=== PATIENT | female | born 1955 | race Caucasian/White ===

== ENCOUNTER 2022-11-03 16:13 | Emergency (ER) | payer MEDICARE ==
[~2022-11-03] VITALS: Ht 154.9 cm; Wt 69.0 kg
[2022-11-03 16:34] VITALS: TEMP 98.4
[2022-11-03] MEDS ORDERED: LISI10TA22 PO (17:02)
[2022-11-03] MEDS ORDERED: FLON1SPR NARES (17:02)
[2022-11-03] MEDS ORDERED: FURO20TA2 PO (17:02)
[2022-11-03] MEDS ORDERED: ATOR40TA75 PO (17:02)
[2022-11-03] MEDS ORDERED: CYMB60CA4 PO (17:02)
[2022-11-03] MEDS ORDERED: TRAZ-186 PO (17:02)
[2022-11-03 17:57] LABS: BASO # 0.1 10^3/uL (0.0-0.2); BASO % 0.8 % (0.0-1.0); EOS # 0.1 10^3/uL (0.0-0.5); EOS % 1.3 % (0.0-3.0); HEMATOCRIT 36.5 % (36.0-47.0); HEMOGLOBIN 12.2 g/dl (12.0-15.5); LYMPH # 2.4 10^3/uL (1.5-5.0); LYMPH % 29.9 % (24.0-44.0); MEAN CORPUSCULAR HEMOGLOBIN 31.3 pg (27.0-33.0); MEAN CORPUSCULAR HGB CONC 33.4 g/dl (32.0-36.5); MEAN CORPUSCULAR VOLUME 93.6 fl (80.0-96.0); MONO # 0.7 10^3/uL (0.0-0.8); NEUTROPHILS # 4.7 10^3/uL (1.5-8.5); NEUTROPHILS % 58.7 % (36.0-66.0); PLATELET COUNT, AUTOMATED 266 10^3/uL (150-450)
[2022-11-03 18:03] LABS: BLOOD UREA NITROGEN 22 MG/DL (9-23); CARBON DIOXIDE LEVEL 24 MMOL/L (20-31); CHLORIDE LEVEL 106 MMOL/L (98-107); CREATININE FOR GFR 0.98 MG/DL (0.55-1.30); GLOMERULAR FILTRATION RATE > 60.0 (>45); GLUCOSE, FASTING 96 MG/DL (74-106); POTASSIUM SERUM 3.7 MMOL/L (3.5-5.1); SODIUM LEVEL 138 MMOL/L (136-145)
[2022-11-03 18:06] LABS: THYROID STIMULATING HORMONE 4.698 uIU/ML (0.55-4.78)
[2022-11-03 18:30] VITALS: BP 117/66; O2SAT 96
[2022-11-03] MEDS ORDERED: ISOVUE-370 76% 100ML VIAL As Ordered ONE (18:47)
[2022-11-03 18:53] LABS: CK-MB VALUE MASS < 1.0 NG/ML (<3.6)
[2022-11-03 18:57] LABS: CPK CREATINE PHOSPHOKINASE 28 U/L (34-145); MB/CK RELATIVE INDEX 3.57 (< OR =4)
[2022-11-03 19:31] LABS: CK-MB VALUE MASS < 1.0 NG/ML (<3.6)
[2022-11-03 20:00] LABS: CPK CREATINE PHOSPHOKINASE 37 U/L (34-145)
== END 2022-11-03 19:38 | disposition left against medical advice (07) ==
LOC: EDBD 16:13 → M ED 16:13
DX: R55 Syncope and collapse (principal); I25.2 Old myocardial infarction; K21.9 Gastro-esophageal reflux disease without esophagitis; I10 Essential (primary) hypertension; M79.7 Fibromyalgia; F03.90 Unspecified dementia, unspecified severity, without behavioral disturbance, psychotic disturbance, mood disturbance, and anxiety; Z87.891 Personal history of nicotine dependence; Z88.5 Allergy status to narcotic agent; Z88.6 Allergy status to analgesic agent; Z88.8 Allergy status to other drugs, medicaments and biological substances; Z79.899 Other long term (current) drug therapy; Z98.84 Bariatric surgery status

== ENCOUNTER 2022-11-22 14:37 | Emergency (ER) | payer MEDICARE, MEDICAID ==
[~2022-11-22] VITALS: Ht 154.9 cm; Wt 75.5 kg
[~2022-11-22 14:37] MED LIST: ATOR40TA75 PO; CYMB60CA4 PO; FLON1SPR NARES; FURO20TA2 PO; LISI10TA22 PO; TRAZ-186 PO
[2022-11-22 15:02] LABS: BASO # 0.1 10^3/uL (0.0-0.2); BASO % 0.8 % (0.0-1.0); EOS # 0.2 10^3/uL (0.0-0.5); HEMATOCRIT 36.8 % (36.0-47.0); HEMOGLOBIN 12.2 g/dl (12.0-15.5); LYMPH # 3.1 10^3/uL (1.5-5.0); LYMPH % 33.8 % (24.0-44.0); MEAN CORPUSCULAR HEMOGLOBIN 31.5 pg (27.0-33.0); MEAN CORPUSCULAR HGB CONC 33.2 g/dl (32.0-36.5); MEAN CORPUSCULAR VOLUME 95.1 fl (80.0-96.0); MONO # 0.7 10^3/uL (0.0-0.8); MONO % 7.5 % (2.0-8.0); NEUTROPHILS # 5.1 10^3/uL (1.5-8.5); NEUTROPHILS % 55.7 % (36.0-66.0); PLATELET COUNT, AUTOMATED 303 10^3/uL (150-450); RED BLOOD COUNT 3.87 10^6/uL (4.00-5.40); WHITE BLOOD COUNT 9.1 10^3/uL (4.0-10.0)
[2022-11-22] MEDS ORDERED: ACETAMINOPHEN 325 MG TAB PO ONE (15:50)
[2022-11-22] MEDS ORDERED: MECLIZINE 25 MG TABLET PO ONE (15:50)
[2022-11-22 16:01] VITALS: BP 164/87; TEMP 98
[2022-11-22 16:07] VITALS: O2SAT 94
[2022-11-22 16:33] LABS: CK-MB VALUE MASS < 1.0 NG/ML (<3.6)
[2022-11-22 16:42] LABS: BLOOD UREA NITROGEN 27 MG/DL (9-23); CALCIUM LEVEL 8.4 MG/DL (8.3-10.6); CARBON DIOXIDE LEVEL 31 MMOL/L (20-31); CHLORIDE LEVEL 105 MMOL/L (98-107); CPK CREATINE PHOSPHOKINASE 32 U/L (34-145); GLOMERULAR FILTRATION RATE 53.1 (>45); GLUCOSE, FASTING 95 MG/DL (74-106); MB/CK RELATIVE INDEX 3.12 (< OR =4); POTASSIUM SERUM 3.9 MMOL/L (3.5-5.1); SODIUM LEVEL 141 MMOL/L (136-145)
[2022-11-22 17:48] LABS: CK-MB VALUE MASS < 1.0 NG/ML (<3.6)
[2022-11-22 17:52] LABS: CPK CREATINE PHOSPHOKINASE 30 U/L (34-145); MB/CK RELATIVE INDEX 3.33 (< OR =4)
[2022-11-22] MEDS ORDERED: MECL1TAB31 PO (20:12)
== END 2022-11-22 20:26 | disposition home or self-care (01) ==
LOC: M ED 14:37 → EDBD 14:37 → M ED 20:26
DX: R07.9 Chest pain, unspecified (principal); H81.399 Other peripheral vertigo, unspecified ear; E78.5 Hyperlipidemia, unspecified; K21.9 Gastro-esophageal reflux disease without esophagitis; R56.9 Unspecified convulsions; F03.90 Unspecified dementia, unspecified severity, without behavioral disturbance, psychotic disturbance, mood disturbance, and anxiety; Z98.84 Bariatric surgery status; Z88.5 Allergy status to narcotic agent; Z88.0 Allergy status to penicillin; Z88.6 Allergy status to analgesic agent; Z79.899 Other long term (current) drug therapy

== ENCOUNTER → 2023-01-18 | Outpatient (REF) | payer MEDICARE, MEDICAID ==
[~2023-01-18] MED LIST changes: +MECL-209 PO
[2023-01-18 17:51] LABS: ALBUMIN 4.1 G/DL (3.2-5.2); ALKALINE PHOSPHATASE 102 U/L (46-116); ALT/SGPT 19 U/L (7.0-40); AST/SGOT 10 U/L (<34); BILIRUBIN,TOTAL 0.6 MG/DL (0.3-1.2); BLOOD UREA NITROGEN 20 MG/DL (9-23); CALCIUM LEVEL 9.4 MG/DL (8.3-10.6); CARBON DIOXIDE LEVEL 28 MMOL/L (20-31); CHLORIDE LEVEL 101 MMOL/L (98-107); CHOLESTEROL LEVEL 133 MG/DL (<200); CHOLESTEROL RISK RATIO 2.94 (<5); CREATININE FOR GFR 1.19 MG/DL (0.55-1.30); GLOMERULAR FILTRATION RATE 48.5 (>45); GLUCOSE, FASTING 107 MG/DL (74-106); HDL CHOLESTEROL 45.1 MG/DL (>40); LDL CHOLESTEROL 64.7 MG/DL (<100); NON-HDL-C 87.9 MG/DL; POTASSIUM SERUM 4.7 MMOL/L (3.5-5.1); SODIUM LEVEL 138 MMOL/L (136-145); TOTAL PROTEIN 7.4 G/DL (5.7-8.2); TRIGLYCERIDES LEVEL 116 MG/DL (<150)
[2023-01-18 17:53] LABS: THYROID STIMULATING HORMONE 6.491 uIU/ML (0.55-4.78); TOTAL 25(OH) VITAMIN D 32.4 NG/ML (20.0-100.0)
[2023-01-18 17:55] LABS: HEMOGLOBIN A1c 5.2 % (4.0-6.0)
== END ==
LOC: M LAB REF 16:12
PROVIDERS: ATTEND Nurse Practitioner Family
DX: E66.3 Overweight (principal); E55.9 Vitamin D deficiency, unspecified; Z11.9 Encounter for screening for infectious and parasitic diseases, unspecified; Z79.51 Long term (current) use of inhaled steroids; Z79.899 Other long term (current) drug therapy

== ENCOUNTER → 2023-03-24 | Outpatient (REF) | payer MEDICARE, MEDICAID, OTHER | LOC: M LAB REF 16:39 | PROVIDERS: ATTEND Nurse Practitioner Family | DX: E03.9 Hypothyroidism, unspecified (principal) ==

== ENCOUNTER 2023-06-09 11:17 | Observation (INO) | payer OTHER, MEDICAID ==
[~2023-06-09] VITALS: Ht 154.9 cm; Wt 59.8 kg
[2023-06-09 12:21] LABS: BASO # 0.1 10^3/uL (0.0-0.2); BASO % 0.7 % (0.0-1.0); EOS % 0.2 % (0.0-3.0); HEMATOCRIT 44.6 % (36.0-47.0); HEMOGLOBIN 14.9 g/dl (12.0-15.5); LYMPH # 3.1 10^3/uL (1.5-5.0); LYMPH % 30.7 % (24.0-44.0); MEAN CORPUSCULAR HEMOGLOBIN 32.7 pg (27.0-33.0); MEAN CORPUSCULAR HGB CONC 33.4 g/dl (32.0-36.5); MEAN CORPUSCULAR VOLUME 97.8 fl (80.0-96.0); MONO # 0.7 10^3/uL (0.0-0.8); MONO % 7.3 % (2.0-8.0); NEUTROPHILS # 6.2 10^3/uL (1.5-8.5); NEUTROPHILS % 60.9 % (36.0-66.0); PLATELET COUNT, AUTOMATED 342 10^3/uL (150-450); RED BLOOD COUNT 4.56 10^6/uL (4.00-5.40); WHITE BLOOD COUNT 10.2 10^3/uL (4.0-10.0)
[2023-06-09 12:55] LABS: CK-MB VALUE MASS < 1.0 NG/ML (<3.6)
[2023-06-09 12:57] LABS: BLOOD UREA NITROGEN 15 MG/DL (9-23); CALCIUM LEVEL 8.7 MG/DL (8.3-10.6); CARBON DIOXIDE LEVEL 27 MMOL/L (20-31); CHLORIDE LEVEL 101 MMOL/L (98-107); CREATININE FOR GFR 1.02 MG/DL (0.55-1.30); GLOMERULAR FILTRATION RATE 57.7 (>45); GLUCOSE, FASTING 135 MG/DL (74-106); POTASSIUM SERUM 3.6 MMOL/L (3.5-5.1); SODIUM LEVEL 135 MMOL/L (136-145)
[2023-06-09 12:59] LABS: CPK CREATINE PHOSPHOKINASE 37 U/L (34-145)
[2023-06-09] MEDS ORDERED: MED REC IN PROGRESS XX SCH (13:25)
[2023-06-09 13:43] LABS: CK-MB VALUE MASS < 1.0 NG/ML (<3.6)
[2023-06-09 13:48] LABS: CPK CREATINE PHOSPHOKINASE 23 U/L (34-145); MB/CK RELATIVE INDEX 4.34 (< OR =4)
[2023-06-09 13:52] LABS: RSV AMPLIFICATION NEGATIVE (NEGATIVE)
[2023-06-09] MEDS ORDERED: NITROGLYCERIN 0.4MG SUBL TABLET SL PRN (14:20)
[2023-06-09] MEDS ORDERED: MAALOX 30 ML SUSP *UDC PO PRN (14:20)
[2023-06-09] MEDS ORDERED: CARA1TAB6 PO (14:52)
[2023-06-09] MEDS ORDERED: PANT40TA29 PO (14:52)
[2023-06-09 16:45] VITALS: BP 130/82; TEMP 97; O2SAT 98
[2023-06-09] MEDS: SUCRALFATE SUSP 1GM/10ML UD PO SCH (17:20)
[2023-06-09 18:59] LABS: CK-MB VALUE MASS < 1.0 NG/ML (<3.6)
[2023-06-09 19:01] LABS: CPK CREATINE PHOSPHOKINASE 29 U/L (34-145); MB/CK RELATIVE INDEX 3.44 (< OR =4)
[2023-06-09] MEDS: traZODone 50 MG TAB PO PRN (20:06)
[2023-06-09 21:26] VITALS: BP 97/60; TEMP 97.5; O2SAT 94
[2023-06-10 01:01] LABS: CK-MB VALUE MASS < 1.0 NG/ML (<3.6)
[2023-06-10 01:02] LABS: CPK CREATINE PHOSPHOKINASE 33 U/L (34-145); MB/CK RELATIVE INDEX 3.03 (< OR =4)
[2023-06-10 06:00] VITALS: BP 100/62; TEMP 97.9; O2SAT 98
[2023-06-10 07:06] LABS: CK-MB VALUE MASS < 1.0 NG/ML (<3.6)
[2023-06-10 07:08] LABS: CPK CREATINE PHOSPHOKINASE 32 U/L (34-145); MB/CK RELATIVE INDEX 3.12 (< OR =4)
[2023-06-10] MEDS ORDERED: E-Z-PAQUE 96% w/w SUSP 176GM BTL As Ordered ONE (08:19)
[2023-06-10] MEDS ORDERED: E-Z-HD 98% w/w 340GM SUSP BTL As Ordered ONE (08:20)
[2023-06-10] MEDS: HEPARIN SOD (PORCINE) 5000UNITS/ML 1ML VIAL/SYRINGE SQ SCH (12:12)
[2023-06-10] MEDS: PANTOPRAZOLE 40MG TAB (PROTONIX) PO SCH (12:12)
[2023-06-10 13:31] VITALS: BP 129/86; TEMP 97.5; O2SAT 98
[2023-06-11 05:16] VITALS: BP 102/69; TEMP 97.2; O2SAT 98
[2023-06-12 05:00] VITALS: BP 110/67; TEMP 97.5; O2SAT 97
[2023-06-12] MEDS ORDERED: FIORICET TAB PO PRN (12:05)
[2023-06-12] MEDS: FIORICET TAB PO ONE (12:18)
[2023-06-12] MEDS: DULoxetine 30MG CAPSULE (CYMBALTA) PO SCH (17:05)
[2023-06-12] MEDS: ATORVASTATIN 20 MG TAB PO SCH (17:05)
[2023-06-12] MEDS: ACETAMINOPHEN 500 MG TAB PO PRN (17:06)
[2023-06-12 17:10] VITALS: BP 100/66
[2023-06-12] MEDS: CETIRIZINE (ZyrTEC) 10 MG TAB PO SCH (20:58)
[2023-06-13 06:00] VITALS: TEMP 96.8; O2SAT 98
[2023-06-13] MEDS: LEVOTHYROXINE 50MCG TABLET (0.05MG) PO SCH (06:02)
[2023-06-13 06:17] VITALS: BP 116/65
[2023-06-13] MEDS ORDERED: MED REC IN PROGRESS XX SCH (08:45)
[2023-06-13] MEDS: FUROSEMIDE 20 MG TAB PO SCH (08:49)
[2023-06-13] MEDS ORDERED: ATOR1TAB21 PO (12:11)
[2023-06-13] MEDS ORDERED: LEVO50TA5 PO (12:11)
[2023-06-13] MEDS ORDERED: FURO20TA2 PO (12:11)
[2023-06-13] MEDS ORDERED: CETI10TA PO (12:11)
[2023-06-13] MEDS ORDERED: CYMB1CAP5 PO (12:11)
[2023-06-13] MEDS ORDERED: LISI10TA22 PO (12:11)
== END 2023-06-13 13:00 | disposition home or self-care (01) ==
LOC: M ED 11:17 → EDBD 11:17 → M ED INP 14:10 → EEVIPCON 14:10 → ENRESERV 16:05 → M MSPAV 16:54
PROVIDERS: ADMIT General Practice; ATTEND General Practice
DX: T76.91XA Unspecified adult maltreatment, suspected, initial encounter (principal); R07.89 Other chest pain; I10 Essential (primary) hypertension; E78.00 Pure hypercholesterolemia, unspecified; K21.9 Gastro-esophageal reflux disease without esophagitis; F03.90 Unspecified dementia, unspecified severity, without behavioral disturbance, psychotic disturbance, mood disturbance, and anxiety; G40.909 Epilepsy, unspecified, not intractable, without status epilepticus; F41.9 Anxiety disorder, unspecified; F32.A Depression, unspecified; E66.9 Obesity, unspecified; Z98.84 Bariatric surgery status; Z79.899 Other long term (current) drug therapy; Z88.0 Allergy status to penicillin; Z88.5 Allergy status to narcotic agent; Z88.8 Allergy status to other drugs, medicaments and biological substances
CPT/HCPCS: 36415; 70450; 71045; 74246; 80048; 81001; 82550; 82553; 84484; 85025; 87086; 87631; 93005; 93041; 93306; 94760; 96372; 97161; 97165; 99285; G0378

== ENCOUNTER 2023-11-22 13:03 | Emergency (ER) | payer OTHER, MEDICAID ==
[~2023-11-22] VITALS: Ht 154.9 cm; Wt 67.3 kg
[~2023-11-22 13:03] MED LIST changes: +ATOR1TAB21 PO; +CARA1TAB6 PO; +CETI10TA PO; +CYMB1CAP5 PO; +LEVO50TA5 PO; +PANT40TA29 PO
[2023-11-22 13:27] VITALS: BP 140/83; TEMP 97.8; O2SAT 96
== END 2023-11-22 16:13 | disposition home or self-care (01) ==
LOC: EDBD 13:03 → M ED 13:03
DX: R22.42 Localized swelling, mass and lump, left lower limb (principal); I10 Essential (primary) hypertension; E78.5 Hyperlipidemia, unspecified; Z88.1 Allergy status to other antibiotic agents; Z88.5 Allergy status to narcotic agent; Z88.8 Allergy status to other drugs, medicaments and biological substances; Z79.899 Other long term (current) drug therapy

== ENCOUNTER → 2023-12-05 | Outpatient (REF) | payer OTHER, MEDICAID ==
[2023-12-05 20:02] LABS: BLOOD UREA NITROGEN 18 MG/DL (9-23); CALCIUM LEVEL 9.2 MG/DL (8.3-10.6); CARBON DIOXIDE LEVEL 27 MMOL/L (20-31); CHLORIDE LEVEL 106 MMOL/L (98-107); CREATININE FOR GFR 0.85 MG/DL (0.55-1.30); GLOMERULAR FILTRATION RATE > 60.0 (>45); GLUCOSE, FASTING 92 MG/DL (74-106); POTASSIUM SERUM 4.6 MMOL/L (3.5-5.1); SODIUM LEVEL 138 MMOL/L (136-145)
[2023-12-05 20:04] LABS: THYROID STIMULATING HORMONE 6.278 uIU/ML (0.55-4.78)
== END ==
LOC: M LAB REF 16:52
PROVIDERS: ATTEND Nurse Practitioner Family
DX: E66.3 Overweight (principal); E03.9 Hypothyroidism, unspecified

== ENCOUNTER 2024-03-20 08:07 | Emergency (ER) | payer OTHER, MEDICAID ==
[~2024-03-20] VITALS: Ht 154.9 cm; Wt 66.4 kg
[2024-03-20] MEDS ORDERED: ACET650T61 PO (12:22)
[2024-03-20] MEDS: ACETAMINOPHEN 500 MG TAB PO ONE (12:37)
[2024-03-20 12:49] VITALS: BP 176/82; TEMP 97.9; O2SAT 94
== END 2024-03-20 12:52 | disposition home or self-care (01) ==
LOC: EDBD 08:07 → M ED 08:07
DX: M25.451 Effusion, right hip (principal); M16.11 Unilateral primary osteoarthritis, right hip; S20.211A Contusion of right front wall of thorax, initial encounter; Y92.019 Unspecified place in single-family (private) house as the place of occurrence of the external cause; Y93.9 Activity, unspecified; Y99.9 Unspecified external cause status; Z87.891 Personal history of nicotine dependence; Z88.1 Allergy status to other antibiotic agents; Z88.5 Allergy status to narcotic agent; Z88.8 Allergy status to other drugs, medicaments and biological substances; Z79.1 Long term (current) use of non-steroidal anti-inflammatories (NSAID); Z79.899 Other long term (current) drug therapy

== ENCOUNTER → 2024-03-26 | Outpatient (REF) | payer OTHER, MEDICAID ==
[~2024-03-26] MED LIST changes: +ACET650T61 PO
[2024-03-26 13:55] LABS: BLOOD UREA NITROGEN 18 MG/DL (9-23); CALCIUM LEVEL 9.1 MG/DL (8.3-10.6); CARBON DIOXIDE LEVEL 27 MMOL/L (20-31); CHLORIDE LEVEL 107 MMOL/L (98-107); CHOLESTEROL LEVEL 217 MG/DL (<200); GLOMERULAR FILTRATION RATE > 60.0 (>45); GLUCOSE, FASTING 119 MG/DL (74-106); HDL CHOLESTEROL 50.4 MG/DL (>40); LDL CHOLESTEROL 119.6 MG/DL (<100); NON-HDL-C 166.6 MG/DL; POTASSIUM SERUM 4.2 MMOL/L (3.5-5.1); SODIUM LEVEL 140 MMOL/L (136-145); TRIGLYCERIDES LEVEL 235 MG/DL (<150)
[2024-03-26 13:56] LABS: THYROID STIMULATING HORMONE 3.884 uIU/ML (0.55-4.78)
[2024-03-26 14:09] LABS: HEMOGLOBIN A1c 5.1 % (4.0-6.0)
== END ==
LOC: M LAB REF 13:20
PROVIDERS: ATTEND Nurse Practitioner Family
DX: E66.3 Overweight (principal); I10 Essential (primary) hypertension; E03.9 Hypothyroidism, unspecified; E78.00 Pure hypercholesterolemia, unspecified

== ENCOUNTER 2024-06-26 13:10 | Emergency (ER) | payer OTHER, MEDICAID ==
[~2024-06-26] VITALS: Ht 154.9 cm; Wt 76.8 kg
[2024-06-26 13:25] VITALS: TEMP 96.6
[2024-06-26] MEDS: HYDROMORPHONE HCL 0.5 MG/ 0.5 ML SYRINGE IV ONE (13:42)
[2024-06-26 14:25] LABS: BASO # 0.1 10^3/uL (0.0-0.2); BASO % 0.5 % (0.0-1.0); EOS # 0.1 10^3/uL (0.0-0.5); EOS % 1.3 % (0.0-3.0); HEMATOCRIT 41.4 % (36.0-47.0); HEMOGLOBIN 13.8 g/dl (12.0-15.5); LYMPH # 3.3 10^3/uL (1.5-5.0); LYMPH % 35.3 % (24.0-44.0); MEAN CORPUSCULAR HEMOGLOBIN 31.7 pg (27.0-33.0); MEAN CORPUSCULAR HGB CONC 33.3 g/dl (32.0-36.5); MEAN CORPUSCULAR VOLUME 95.2 fl (80.0-96.0); MONO # 0.7 10^3/uL (0.0-0.8); MONO % 7.6 % (2.0-8.0); NEUTROPHILS # 5.2 10^3/uL (1.5-8.5); NEUTROPHILS % 55.1 % (36.0-66.0); PLATELET COUNT, AUTOMATED 354 10^3/uL (150-450); RED BLOOD COUNT 4.35 10^6/uL (4.00-5.40); WHITE BLOOD COUNT 9.5 10^3/uL (4.0-10.0)
[2024-06-26 15:13] LABS: BLOOD UREA NITROGEN 17 MG/DL (9-23); CALCIUM LEVEL 9.1 MG/DL (8.3-10.6); CARBON DIOXIDE LEVEL 24 MMOL/L (20-31); CHLORIDE LEVEL 105 MMOL/L (98-107); CREATININE FOR GFR 0.69 MG/DL (0.55-1.30); GLOMERULAR FILTRATION RATE > 60.0 (>45); GLUCOSE, FASTING 102 MG/DL (74-106); POTASSIUM SERUM 5.6 MMOL/L (3.5-5.1); SODIUM LEVEL 139 MMOL/L (136-145)
[2024-06-26 17:00] VITALS: BP 170/92; O2SAT 97
== END 2024-06-26 17:33 | disposition home or self-care (01) ==
LOC: EDBD 13:10 → M ED 13:10
DX: M54.50 Low back pain, unspecified (principal); I10 Essential (primary) hypertension; E78.5 Hyperlipidemia, unspecified; M79.7 Fibromyalgia; K21.9 Gastro-esophageal reflux disease without esophagitis; F41.9 Anxiety disorder, unspecified; F32.A Depression, unspecified; Z88.1 Allergy status to other antibiotic agents; Z88.5 Allergy status to narcotic agent; Z88.6 Allergy status to analgesic agent; Z88.8 Allergy status to other drugs, medicaments and biological substances; Z79.1 Long term (current) use of non-steroidal anti-inflammatories (NSAID); Z79.899 Other long term (current) drug therapy
CPT/HCPCS: 72128; 72131; 80048; 84132; 85025; 93041; 96374; 99284; J1171

== ENCOUNTER → 2024-07-13 | Outpatient (REF) | payer OTHER, MEDICAID ==
[2024-07-13 14:33] LABS: BLOOD UREA NITROGEN 15 MG/DL (9-23); CALCIUM LEVEL 8.9 MG/DL (8.3-10.6); CARBON DIOXIDE LEVEL 25 MMOL/L (20-31); CHLORIDE LEVEL 108 MMOL/L (98-107); CREATININE FOR GFR 0.69 MG/DL (0.55-1.30); GLOMERULAR FILTRATION RATE > 60.0 (>45); GLUCOSE, FASTING 102 MG/DL (74-106); POTASSIUM SERUM 4.1 MMOL/L (3.5-5.1); SODIUM LEVEL 141 MMOL/L (136-145)
[2024-07-13 14:35] LABS: THYROID STIMULATING HORMONE 12.293 uIU/ML (0.55-4.78)
== END ==
LOC: M LAB REF 12:53
PROVIDERS: ATTEND Nurse Practitioner Family
DX: I10 Essential (primary) hypertension (principal); E03.9 Hypothyroidism, unspecified

== ENCOUNTER → 2024-07-16 | Outpatient (CLI) | payer OTHER, MEDICAID | LOC: M WHC 13:14 | PROVIDERS: ATTEND Orthopaedic Surgery | DX: M85.851 Other specified disorders of bone density and structure, right thigh (principal); M85.852 Other specified disorders of bone density and structure, left thigh; M16.11 Unilateral primary osteoarthritis, right hip; M25.451 Effusion, right hip; M47.896 Other spondylosis, lumbar region; M25.452 Effusion, left hip; M25.751 Osteophyte, right hip ==

== ENCOUNTER → 2024-07-16 | Outpatient (CLI) | payer OTHER, MEDICAID | LOC: M PLAIMG 13:17 | PROVIDERS: ATTEND Orthopaedic Surgery | DX: M16.11 Unilateral primary osteoarthritis, right hip (principal); M25.451 Effusion, right hip; M47.896 Other spondylosis, lumbar region; M25.452 Effusion, left hip; M25.751 Osteophyte, right hip; M85.851 Other specified disorders of bone density and structure, right thigh; M85.852 Other specified disorders of bone density and structure, left thigh ==

== ENCOUNTER → 2024-08-30 | Outpatient (CLI) | payer OTHER, MEDICAID | LOC: M EKG 08:05 | PROVIDERS: ATTEND Nurse Practitioner Family | DX: I10 Essential (primary) hypertension (principal) ==

== ENCOUNTER 2024-09-06 12:26 | Outpatient (RCR) | payer OTHER, MEDICAID | END 2024-09-12 | LOC: M PT 12:26 | PROVIDERS: ATTEND Orthopaedic Surgery | DX: M25.751 Osteophyte, right hip (principal); M16.11 Unilateral primary osteoarthritis, right hip ==